=== PATIENT | male | born 2000 | race African-American/Black ===

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

== ENCOUNTER 2020-04-11 18:59 | Emergency (ER) | payer OTHER ==
[~2020-04-11] VITALS: Ht 188 cm; Wt 113.6 kg
[2020-04-11 20:10] VITALS: BP 128/71
== END 2020-04-11 20:20 | disposition home or self-care (01) ==
LOC: EMS 19:04
DX: Z03.818 Encounter for observation for suspected exposure to other biological agents ruled out (principal)
CPT/HCPCS: 99283; U0003